=== PATIENT | male | born 1990 | race Caucasian/White ===

== ENCOUNTER 2020-11-01 19:45 | Emergency (ER) | payer OTHER ==
[2020-11-01] MEDS ORDERED: BACTRIM DS TAB1 EACH PO (22:00)
== END 2020-11-01 22:16 | disposition home or self-care (01) ==
LOC: ER1 19:45
DX: L03.113 Cellulitis of right upper limb (principal); M54.2 Cervicalgia; R51.9 Headache, unspecified; F19.10 Other psychoactive substance abuse, uncomplicated; F17.210 Nicotine dependence, cigarettes, uncomplicated; Z79.899 Other long term (current) drug therapy
CPT/HCPCS: 70450; 72125; 73080; 99284